=== PATIENT | female | born 1985 | race Asian ===

== ENCOUNTER 2022-01-05 19:34 | Observation (INO) ==
[2022-01-05] MEDS ORDERED: IOPAMIDOL 100 ML BOTTLE IV ONE (19:35)
--- NOTE | 2022-01-05 19:56 | Emergency Department Note ---
Abdominal Pain HPI General Chief Complaint: Abdominal Pain Stated Complaint: abd Time Seen by Provider: 01/05/22 19:37 Source: patient Mode of arrival: ambulatory Limitations: no limitations History of Present Illness HPI Narrative: Narrative: Patient presents ED after being sent over from [facility] for concerning findings on ultrasound correlate in the cholecystitis. Patient's had worsening abdominal pain in the right upper quadrant area over the last week. Patient states that the pain is currently 7/10. Lab work was done over at walk-in clinic and was unremarkable. Patient denies fever, chills, vomiting, diarrhea, constipation, dysuria, hematuria, urinary frequency. Patient denies any other alleviating or aggravating factors. last ate at 4pm. Related Data Home Medications Medication Instructions Recorded Confirmed omeprazole 20 mg tablet,delayed 20 mg PO QDAY 01/05/22 01/05/22 release Allergies Allergy/AdvReac Type Severity Reaction Status Date / Time No Known Drug Allergies Allergy Verified 01/05/22 12:42 Review of Systems ROS ROS Narrative: Narrative: All systems ED: reviewed and negative except as stated. [facility] Narrative Patient History Narrative: Narrative: Medical/Surgical/Family History All Active Problems (Updated 01/05/22 @ 21:51 by Shahriar Corea MD) Cholecystitis (Acute) Acute cholecystitis (Acute) Social History Smoking Status: Current every day smoker Exam Narrative Narrative: Narrative: General Limitations: no limitations General appearance: Present alert Respiratory Respiratory: Present normal lung sounds bilaterally; Absent respiratory distress Cardiovascular Cardiovascular: Present regular rate and normal rhythm Adbominal Abdominal: Present soft, tenderness and normal bowel sounds Expanded Abdominal Abdominal Tenderness: Present RUQ Extremities Extremities: Present normal capillary refill Neurological Neurological: Present oriented X3 and normal gait Psychiatric Psychiatric: Present normal affect and normal mood Skin Skin: Present warm (WNL) and intact Course Course Course Narrative: Patient was evaluated for right upper quadrant abdominal pain. Labs from outside facility were reviewed which show that patient not have a white cell count. She is afebrile with normal vital signs here in the ED. Her UA was unremarkable and her test was negative. Case was discussed with on- call surgeon, Dr. Corea who recommend the patient have a CT of the abdomen and pelvis. CT abdomen pelvis was obtained and confirmed that patient cholecystitis . Patient states that she has been dealing with this pain on and off for over a month and the pain has been worsening to the point where she can even sleep at night. She states what her pain is well controlled right now she was still want to have surgery now supposed to go home and be in pain. On-call surgeon Dr. Corea has placed admission orders. Consultations Consultation #1: Case discussed with on-call surgeon, Dr. Corea, who is agreed to admit the patient for cholecystitis. Time: 20:57 Vital Signs Vital signs: Vital Signs Temperature 97.0 F 01/05/22 19:35 Pulse Rate 96 H 01/05/22 19:35 Respiratory Rate 18 01/05/22 19:35 Blood Pressure 129/93 01/05/22 19:35 Pulse Oximetry (%) 100 01/05/22 19:35 Oxygen Delivery Method 01/05/22 19:35 Temperature 97.0 F 01/05/22 19:35 Pulse Rate 80 01/05/22 21:31 Respiratory Rate 16 01/05/22 20:15 Blood Pressure 139/102 01/05/22 21:31 Pulse Oximetry (%) 100 01/05/22 21:31 Oxygen Delivery Method 01/05/22 20:15 MDM MDM Narrative Medical decision making narrative: Narrative: Differential Diagnosis Differential Diagnosis: Cholecystitis Medical Records Medical records reviewed: Yes I reviewed the patient's medical records. Lab Data Lab results reviewed: Yes I reviewed the patient's lab results. 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
[2022-01-05] MEDS ORDERED: 0.9 % SODIUM CHLORIDE 1,000 ML IV ONE (20:00)
[2022-01-05] MEDS ORDERED: ONDANSETRON 4 MG/2 ML VIAL IV PRN (20:43)
[2022-01-05] MEDS ORDERED: ACETAMINOPHEN 325 MG TABLET PO PRN (20:43)
[2022-01-05] MEDS ORDERED: HYDROmorphone 0.5 MG/0.5 ML SYRINGE IV PRN (20:43)
--- NOTE | 2022-01-05 20:43 | Cat Scan Report ---
History: Right upper quadrant pain 6 technique: Following injection of intravenous nonionic contrast the patient was imaged from above the diaphragm through the symphysis pubis. Sagittal and coronal reformats were created. The radiation exposure was limited using dose reduction technology. FINDINGS: There are linear bands of scar or discoid atelectasis in the lingula, right middle lobe and posterior basal segment left lower lobe. There is no pleural effusion. No hiatus hernia is present. The liver is normal in size. There is focal fatty infiltration the left lobe adjacent to the falciform ligament. The liver is otherwise homogeneous. No abnormality is present in the spleen. Within the lumen of the gallbladder there is a 1.6 x 2.4 cm calcified gallstone. The wall is very thickened and inflamed and measures up to 7 mm. There is no associated free fluid and no abscess is present. The intra and extrahepatic bile ducts are small. Common bile duct is partially 3 mm in diameter. There are no stones within the ducts. No mass or inflammation are present in the pancreas. The adrenals and kidneys are normal. There is no kidney stone or hydronephrosis. The aorta and inferior vena cava are normal. No ascites or adenopathy are present. There is contrast material within the large intestine which may be from a prior study. Moderate amount of unopacified ingested food is present in the stomach. Small intestine is normal and noninflamed. The appendix is normal. Uterus is anteverted. There are multiple moderate size nabothian cysts in the cervix. Ovaries appear normal and symmetric. Urinary bladder is nearly empty and grossly normal. L4-5 disc is mildly narrowed and there is 3 mm grade 1 spondylolisthesis due to arthritis in the facets. Associated with this is a small broad-based bulge. L5-S1 disc is mildly narrowed but there is no disc protrusion. IMPRESSION: Cholelithiasis and cholecystitis Dr. Hairston was called with the report Interpreted and Authenticated by: Abbe Bergman 01/05/22
[2022-01-05] MEDS ORDERED: LEVOFLOXACIN 500 MG/100 ML BAG IV ONE (20:54)
--- NOTE | 2022-01-05 21:43 | General Surgery Consult Note ---
HPI Data of Consult Consult date: 01/05/22 Requesting physician: Dameon Hairston Primary Care Provider: PCP No Consult Narrative Chief complaint: RUQ Pain Reason for consult: Cholecystitis History of present illness: Ruby is seen in consultation tonight with worsening and exacerbation of RUQ Pain that has been ongoing with a fairly severe intensity for the past 6-8 weeks. She was treated for reflux for some period of time without improvement of her symptoms and has been seen multiple times over the past couple of months at various locations as she has been in the area for a short period of time working and is due to return home to [place] in a few days. She was seen in the Urgent Care today and a RUQ US confirmed evidence of gallstones and probable Cholecystitis. She has subsequently presented to the ER. Her laboratory studies have been normal but CT scan demonstrates fairly severe thickening of the gallbladder wall with a large stone lodged in the gallbladder neck. Her baseline health is very good and she denies any cardiac or pulmonary concerns. She is not on any oral anticoagulants and denies use of Home O2, CPAP or BIPAP. She has not had any prior abdominal surgery and she is not currently on any prescription medications. cc:: CC: Review of Systems All systems: reviewed and no additional remarkable complaints except as stated Review of systems: Gen no changes ENT denies pain or bleeding Neuro no recent changes Lymphatic denies adenopathy Cardiac denies chest pain or arrhythmia Resp denies SOB or cough GI see HPI no hematuria Musculoskeletal no changes Heme no bleeding concerns Dermal no changes PFSH PFSH All Active Problems (Updated 01/05/22 @ 21:51 by Shahriar Corea MD) Cholecystitis (Acute) Acute cholecystitis (Acute) Social History smoking status: Current every day smoker MEDS/ALLERGIES Home Medications and Allergies Home Medications Medication Instructions Recorded Confirmed Type omeprazole 20 mg tablet,delayed 20 mg PO QDAY 01/05/22 01/05/22 History release Allergies Allergy/AdvReac Type Severity Reaction Status Date / Time No Known Drug Allergies Allergy Verified 01/05/22 12:42 Physical Examination Vital Signs Vital signs: Temp Pulse Resp BP Pulse Ox O2 Del Method 97.0 F 90 16 118/80 98 01/05/22 19:35 01/05/22 20:15 01/05/22 20:15 01/05/22 20:15 01/05/22 20:15 01/05/22 20:15 General physical appearance General physical exam: well developed, well nourished and no distress Eyes Eye exam: normal ocular movement; negative icteric ENT ENT exam: normal pinna Head Head exam IM: Present atraumatic, normal inspection and normocephalic Neck Neck exam: no masses and trachea midline Cardiovascular Cardiovascular exam IM: Present normal rate and rhythm Respiratory Respiratory exam: normal expansion and normal respiratory effort Abdomen Abdomen: Present soft (soft and focally tender in the RUQ without peritoneal findings, no mass, and remainder of abdomen is soft and non tender) Integumentary Integumentary: Present other (normal appearing intact skin ) Neurologic Neurologic: Present other (grossly intact ) Musculoskeletal Musculoskeletal: Present other (normal appearance ) Results Labs Labs: All other labs normal. A/P Assessment and plan (1) Cholecystitis: Assessment and plan: Clinical and Radiographic Findings consistent with fairly severe and now somewhat chronic Cholecystitis Surgery is recommended and she would like to proceed. Risks, benefits, potential complications and alternative treatment options are all discussed at length including but not limited to infection, bleeding, injury to surrounding structures, conversion to open, partial or subtotal removal, drain placement, bile leak, and a multitude of other issues including the option to undergo Perc Cholecystostomy tube at this time as a temporizing measure We will admit her to the hospital tonight for bowel rest, IVF, IV ABs, and plans to proceed to the OR tomorrow She has a good understanding of the issues and wishes to proceed Status: Acute Time Spent With Patient Time: Total time spent is greater than 50% in coordination of care (as documented) at patient's floor/unit and/or counseling patient:
[2022-01-05] MEDS: DEXTROSE 5%-NS W/20MEQ KCL 1,000 ML IV SCH (22:22)
[2022-01-05] MEDS: PIPERACILLIN SODIUM/TAZOBACTAM 3.375 GM in DEXTROSE 5% IN WATER 50 ML IV SCH (22:52)
[2022-01-05] MEDS: 0.9 % SODIUM CHLORIDE 10 ML SYRINGE IV SCH (22:53)
[2022-01-06] MEDS: PIPERACILLIN SODIUM/TAZOBACTAM 3.375 GM in DEXTROSE 5% IN WATER 50 ML IV SCH ×4 (03:19→17:58)
[2022-01-06 07:28] LABS: Hematocrit 42.8 % (34.1-44.9); Hemoglobin 13.1 g/dL (11.2-15.7); Mean Corpuscular HGB Conc 30.6 g/dL (31.0-36.0); Mean Platelet Volume 9.9 fL (8.8-12.5); Platelet Count 212 K/mcL (140-440); RBC 4.65 M/mcL (3.59-5.38); WBC 4.7 K/mcL (4.5-11.0)
[2022-01-06] MEDS: DEXTROSE 5%-NS W/20MEQ KCL 1,000 ML IV SCH ×2 (07:33→21:00)
[2022-01-06] MEDS: 0.9 % SODIUM CHLORIDE 10 ML SYRINGE IV SCH ×3 (07:34→21:00)
[2022-01-06] MEDS ORDERED: IPRATROPIUM/ALBUTEROL 3 ML AMPUL.NEB NEB PRN ×2 (07:56→14:37)
[2022-01-06] MEDS ORDERED: SCOPOLAMINE 1 PATCH PATCH TOPICAL PRN (07:56)
[2022-01-06 07:57] LABS: ALT/SGPT 14 U/L (<40); AST/SGOT 14 U/L (<32); Albumin 3.9 gm/dL (3.2-5.2); Albumin/Globulin Ratio 1.1 (1.0-2.3); Alkaline Phosphatase 87 U/L (39-117); Bilirubin,Total 0.7 mg/dL (0.1-1.0); Blood Urea Nitrogen 12 mg/dL (6-20); Calcium 8.9 mg/dL (8.6-10.4); Carbon Dioxide 22 mmol/L (22-30); Chloride 105 mmol/L (96-108); Globulin 3.7 gm/dL (2.2-3.7); Glomerular Filtration Rate 71; Glucose 119 mg/dL (70-105)
[2022-01-06] MEDS ORDERED: INDOCYANINE GREEN 25 MG VIAL IV ONE (08:14)
--- NOTE | 2022-01-06 08:58 | General Surgery Progress Note ---
SUBJECTIVE Subjective Patient information: Note initiated : 01/06/22 at 8:56 am Service Date, if different from initiated Date: [] Patient: Ruby Sullivan 36 y/o F admitted on 01/05/22 for abd. Chief Complaint: [] OK overnight, feels largely unchanged, voiding large amounts Constitutional Vitals: Vital Signs Temp Pulse Resp BP Pulse Ox O2 Del Method 100.9 F H 65 20 103/62 92 01/06/22 07:20 01/06/22 03:21 01/06/22 07:20 01/06/22 07:20 01/06/22 07:20 01/06/22 07:20 Period Temp Pulse Resp BP Sys/Miller Pulse Ox O2 Del Method O2 Flow Rate Last 24 Hr 97 F-100.9 F 65-96 16-20 103-142/62-102 92-100 Room Air-Room Air Intake and Output 01/05/22 01/06/22 01/06/22 21:59 05:59 13:59 Intake Total 1200 968 Output Total 650 Balance 550 968 Weight 161 lb 12.8 oz 161 lb 12.8 oz Intake & Output: Intake & Output 01/05/22 01/06/22 01/06/22 21:59 05:59 13:59 Intake Total 1200 968 Output Total 650 Balance 550 968 Weight 161 lb 12.8 oz 161 lb 12.8 oz Intake: IV 1200 968 Sodium Chloride 0.9% 1,000 ml @ 1000 Wide Open IV [facility] Rx#: [id number] Dextrose 5%-Ns W/20Meq KCl 1, 918 000 ml @ 100 mls/hr IV .Q10H [facility] Rx#:[id number] Zosyn 3.375 gm In Dextrose 5% 100 50 in Water 50 ml @ 100 mls/hr IV Q6H [facility] Rx#:[id number] Output: Void Amount 650 Other: Stool Color Yellow Stool Consistency Liquid Exam: looks non toxic, NAD Respiratory Respiratory exam: Present normal respiratory exam Cardiovascular Cardiovascular exam: Present RRR GI/Abdominal Additional comments: soft and non distended, focal tenderness remains Extremities Exam Additional comments: well perfused A/P Assessment and plan (1) Cholecystitis: Assessment and plan: Cholecystitis To the OR this AM Issues reviewed and discussed with patient and SO Proceed to the OR this AM Status: Acute Time Spent With Patient Time: Total time spent is greater than 50% in coordination of care (as documented) at patient's floor/unit and/or counseling patient:
[2022-01-06] MEDS ORDERED: ROCURONIUM 10 MG/ML ML IV ONE (11:35)
[2022-01-06] MEDS ORDERED: MAGNESIUM SULFATE 2 GM/50 ML BAG IV ONE (11:35)
[2022-01-06] MEDS ORDERED: fentaNYL 250 MCG/5 ML VIAL IV ONE (11:35)
[2022-01-06] MEDS ORDERED: SUGAMMADEX SODIUM 200 MG/2 ML VIAL IV ONE (11:35)
[2022-01-06] MEDS ORDERED: KETAMINE 50 MG/ML Syringe (ANEST) IV ONE (11:35)
[2022-01-06] MEDS ORDERED: ePHEDrine 50 MG/5 ML SYRINGE (ANEST) IV ONE (11:35)
[2022-01-06] MEDS ORDERED: LIDOCAINE HCL/PF 100 MG/5 ML SYRINGE IV ONE (11:35)
[2022-01-06] MEDS ORDERED: ONDANSETRON 4 MG/2 ML VIAL ONE ×2 (11:35→23:09)
[2022-01-06] MEDS ORDERED: PROPOFOL 200 MG/20 ML VIAL IV ONE (11:35)
[2022-01-06] MEDS ORDERED: DEXAMETHASONE 10 MG/ML VIAL ONE (11:35)
[2022-01-06] MEDS ORDERED: BUPIVACAINE W/EPI 0.5% 50 ML VIAL IJ ONE (12:05)
[2022-01-06] MEDS ORDERED: diphenhydrAMINE 50 MG/ML VIAL IV PRN (14:37)
[2022-01-06] MEDS ORDERED: LACTATED RINGERS 250 ML IV PRN (14:37)
[2022-01-06] MEDS ORDERED: ACETAMINOPHEN 1,000 MG/100 ML BAG IV ONE (14:37)
[2022-01-06] MEDS ORDERED: ONDANSETRON 4 MG/2 ML VIAL IV PRN (14:37)
[2022-01-06] MEDS ORDERED: NALOXONE HCL 0.4 MG/ML VIAL IV PRN (14:37)
[2022-01-06] MEDS ORDERED: fentaNYL 100 MCG/2 ML VIAL IV PRN (14:37)
[2022-01-06] MEDS ORDERED: PROMETHAZINE 25 MG/ML VIAL IV PRN (14:37)
[2022-01-06] MEDS ORDERED: HYDROmorphone 0.5 MG/0.5 ML SYRINGE IV PRN (14:37)
[2022-01-06] MEDS ORDERED: MEPERIDINE 25 MG/ML VIAL IV PRN (14:37)
[2022-01-06] MEDS ORDERED: LACTATED RINGERS 1,000 ML IV SCH (14:45)
--- NOTE | 2022-01-06 19:47 | Brief Operative Note ---
Brief Operative Note Date of procedure: 01/06/22 Pre-op diagnosis: Cholecystitis Post-op diagnosis: same Procedure: Laparoscopic Lysis of Adhesions and Fenestrating Subtotal Cholecystectomy with Drain Placement Grafts/Implants: Yes (19 FR Franky Drain ) Anesthesia: GETA Findings: 1. Extensive Adhesions between Dome of the Liver and the overlying Abdominal Wall; Severely Inflamed Gallbladder with Frozen Hepatocystic [place] Necessitating Subtotal Fenestrating Cholecystectomy Complications: none Surgeon: Shahriar Corea Estimated blood loss (cc): 25 Specimens Removed/Pathology: other (Anterior Wall of Gallbladder, Large Gallstone ) Condition: stable Disposition: PACU
[2022-01-06] MEDS ORDERED: ACETAMINOPHEN 325 MG TABLET PO ONE (21:16)
[2022-01-06] MEDS: oxyCODONE HCL 5 MG TABLET PO PRN (23:02)
[2022-01-06] MEDS ORDERED: oxyCODONE HCL 5 MG TABLET PO ONE (23:10)
[2022-01-07] MEDS: PIPERACILLIN SODIUM/TAZOBACTAM 3.375 GM in DEXTROSE 5% IN WATER 50 ML IV SCH ×5 (01:29→23:23)
[2022-01-07] MEDS: 0.9 % SODIUM CHLORIDE 10 ML SYRINGE IV SCH ×3 (06:07→22:45)
[2022-01-07] MEDS: DEXTROSE 5%-NS W/20MEQ KCL 1,000 ML IV SCH ×4 (06:40→23:22)
[2022-01-07 06:46] LABS: Hematocrit 33.8 % (34.1-44.9); Hemoglobin 10.4 g/dL (11.2-15.7); Mean Cell Volume 92.6 fL (80.0-100.0); Mean Corpuscular HGB Conc 30.8 g/dL (31.0-36.0); Mean Platelet Volume 9.6 fL (8.8-12.5); Platelet Count 183 K/mcL (140-440); RBC 3.65 M/mcL (3.59-5.38); Red Cell Distribution Width 14.7 % (11.5-14.5); WBC 6.6 K/mcL (4.5-11.0)
[2022-01-07 07:10] LABS: ALT/SGPT 44 U/L (<40); AST/SGOT 45 U/L (<32); Alkaline Phosphatase 66 U/L (39-117); Bilirubin,Total 0.2 mg/dL (0.1-1.0); Blood Urea Nitrogen 5 mg/dL (6-20); Calcium 7.8 mg/dL (8.6-10.4); Carbon Dioxide 24 mmol/L (22-30); Chloride 109 mmol/L (96-108); Globulin 3.1 gm/dL (2.2-3.7); Glomerular Filtration Rate 109; Glucose 140 mg/dL (70-105)
[2022-01-07] MEDS: oxyCODONE HCL 5 MG TABLET PO PRN ×4 (07:16→23:22)
[2022-01-07] MEDS ORDERED: ACETAMINOPHEN 325 MG TABLET PO PRN (07:49)
[2022-01-07] MEDS ORDERED: HYDROmorphone 0.5 MG/0.5 ML SYRINGE IV PRN (07:50)
[2022-01-07] MEDS ORDERED: ONDANSETRON 4 MG/2 ML VIAL IV PRN (07:52)
[2022-01-07] MEDS ORDERED: PIPERACILLIN SODIUM/TAZOBACTAM 3.375 GM in DEXTROSE 5% IN WATER 50 ML IV SCH (08:00)
[2022-01-07] MEDS ORDERED: DEXTROSE 5%-NS W/20MEQ KCL 1,000 ML IV SCH (08:15)
--- NOTE | 2022-01-07 10:30 | General Surgery Progress Note ---
SUBJECTIVE Subjective Patient information: Note initiated : 01/07/22 at 10:26 am Service Date, if different from initiated Date: [] Patient: Ruby Sullivan 36 y/o F admitted on 01/05/22 for abd. Chief Complaint: [] She looks and feels well this am, tolerating clears, passing gas and has been ambulatory. Feels much improved compared to her admission status. Constitutional Vitals: Vital Signs Temp Pulse Resp BP Pulse Ox O2 Del Method O2 Flow Rate 98 F 71 16 107/74 95 1 01/07/22 07:20 01/07/22 03:27 01/07/22 07:20 01/07/22 07:20 01/07/22 07:20 01/07/22 07:20 01/06/22 16:00 Period Temp Pulse Resp BP Sys/Miller Pulse Ox O2 Del Method O2 Flow Rate Last 24 Hr 97.0 F-98.6 F 53-80 12-29 100-152/64-113 93-100 Nasal Cannula- Room Air 1-6 Intake and Output 01/06/22 01/07/22 01/07/22 21:59 05:59 13:59 Intake Total 3650 880 1530 Output Total 740 920 255 Balance 2910 -40 1275 Weight 166 lb 6 oz Intake & Output: Intake & Output 01/06/22 01/07/22 01/07/22 21:59 05:59 13:59 Intake Total 3650 880 1530 Output Total 740 920 255 Balance 2910 -40 1275 Weight 166 lb 6 oz Intake: IV 1050 50 1050 Dextrose 5%-Ns W/20Meq KCl 1, 1000 1000 000 ml @ 100 mls/hr IV .Q10H [facility] Rx#:[id number] Zosyn 3.375 gm In Dextrose 5% 50 50 50 in Water 50 ml @ 100 mls/hr IV Q6H [facility] Rx#:[id number] Oral 830 480 IV - Manual Only 2600 Output: Drainage 390 120 30 Right KELSI Drain 390 120 30 Void Amount 250 800 225 Estimated Blood Loss 100 Other: Meal Breakfast Percent of Meal Consumed 100% Urine Appearance Clear Urine Color Dark Avani Urine Odor Strong Exam: Looks well, NAD Head Head exam: Present atraumatic, normal inspection and normocephalic Respiratory Respiratory exam: Present normal respiratory exam Cardiovascular Cardiovascular exam: Present normal rate and rhythm and RRR GI/Abdominal Additional comments: soft and non distended, mininally tender, drain scant serosang, A/P Assessment and plan (1) Acute cholecystitis: Plan: Post Lap Fenestrating Subtotal Cholecystectomy for severe cholecystitis Doing Well Advance Diet Increase activity and re evaluate in AM, no discharge today Status: Acute Time Spent With Patient Time: Total time spent is greater than 50% in coordination of care (as documented) at patient's floor/unit and/or counseling patient:
[2022-01-07] MEDS: oxyCODONE HCL 5 MG TABLET PO ONE ×2 (10:54→13:44)
[2022-01-08] MEDS: oxyCODONE HCL 5 MG TABLET PO PRN ×2 (04:05→09:21)
[2022-01-08] MEDS: 0.9 % SODIUM CHLORIDE 10 ML SYRINGE IV SCH (04:05)
[2022-01-08] MEDS: PIPERACILLIN SODIUM/TAZOBACTAM 3.375 GM in DEXTROSE 5% IN WATER 50 ML IV SCH ×2 (06:09→12:16)
[2022-01-08 06:25] LABS: Hematocrit 32.9 % (34.1-44.9); Hemoglobin 9.8 g/dL (11.2-15.7); Mean Cell Volume 95.4 fL (80.0-100.0); Mean Corpuscular HGB Conc 29.8 g/dL (31.0-36.0); Platelet Count 177 K/mcL (140-440); RBC 3.45 M/mcL (3.59-5.38); Red Cell Distribution Width 15.1 % (11.5-14.5); WBC 5.1 K/mcL (4.5-11.0)
[2022-01-08 06:56] LABS: ALT/SGPT 29 U/L (<40); AST/SGOT 20 U/L (<32); Albumin 2.7 gm/dL (3.2-5.2); Albumin/Globulin Ratio 0.9 (1.0-2.3); Alkaline Phosphatase 56 U/L (39-117); Bilirubin,Total < 0.2 mg/dL (0.1-1.0); Blood Urea Nitrogen 8 mg/dL (6-20); Calcium 7.9 mg/dL (8.6-10.4); Carbon Dioxide 22 mmol/L (22-30); Chloride 110 mmol/L (96-108); Globulin 2.9 gm/dL (2.2-3.7); Glomerular Filtration Rate 109; Glucose 115 mg/dL (70-105)
--- NOTE | 2022-01-08 08:32 | General Surgery Progress Note ---
SUBJECTIVE Subjective Patient information: Note initiated : 01/08/22 at 8:27 am Service Date, if different from initiated Date: [] Patient: Ruby Sullivan 36 y/o F admitted on 01/05/22 for abd. Chief Complaint: [] POD #2 Lap Subtotal Fenestrating Cholecystectomy Doing well this am, continues to feel much improved, tolerating diet, pain remains overall improved Constitutional Vitals: Vital Signs Temp Pulse Resp BP Pulse Ox O2 Del Method O2 Flow Rate 98.2 F 64 16 144/102 94 98 01/08/22 08:00 01/08/22 08:00 01/08/22 08:00 01/08/22 08:00 01/08/22 03:16 01/08/22 08:00 01/08/22 08:00 Period Temp Pulse Resp BP Sys/Miller Pulse Ox O2 Del Method O2 Flow Rate Last 24 Hr 98.1 F-99.2 F 64-71 16-20 113-154/81-102 94-99 Room Air-Room Air 98 Intake and Output 01/07/22 01/08/22 01/08/22 21:59 05:59 13:59 Intake Total 1390 1680 50 Output Total 370 280 Balance 1020 1400 50 Weight 172 lb 1 oz Intake & Output: Intake & Output 01/07/22 01/08/22 01/08/22 21:59 05:59 13:59 Intake Total 1390 1680 50 Output Total 370 280 Balance 1020 1400 50 Weight 172 lb 1 oz Intake: IV 1050 1050 50 Dextrose 5%-Ns W/20Meq KCl 1, 1000 1000 000 ml @ 75 mls/hr IV .[id number] [facility] Rx#:[id number] Zosyn 3.375 gm In Dextrose 5% 50 50 50 in Water 50 ml @ 100 mls/hr IV Q6H [facility] Rx#:[id number] Oral 340 630 Output: Drainage 45 80 Right KELSI Drain 45 80 Void Amount 325 200 Other: Meal Dinner Percent of Meal Consumed 75% Urine Appearance Clear Urine Color Yellow Stool Size Moderate Moderate Stool Color Brown Brown Green Stool Consistency Watery Loose Jesenia # Voids 1 # Bowel Movements 1 1 Exam: Looks well, non toxic, NAD Respiratory Respiratory exam: Present normal respiratory exam Cardiovascular Cardiovascular exam: Present normal rate and rhythm and RRR GI/Abdominal Additional comments: soft and non distended, non tender, dressings dry, drain light pink serosang Extremities Exam Additional comments: well perfused A/P Assessment and plan (1) Cholecystitis: Assessment and plan: Severe Cholecystitis now POD #3 Subtotal Fenestrating Cholecystectomy Doing Well Continue present care, possibly out later on today if feeling well enough to go Status: Acute Time Spent With Patient Time: Total time spent is greater than 50% in coordination of care (as documented) at patient's floor/unit and/or counseling patient:
--- NOTE | 2022-01-09 09:15 | Operative Note ---
DATE OF OPERATION: 01/06/2022 PREOPERATIVE DIAGNOSIS: Severe cholecystitis. POSTOPERATIVE DIAGNOSIS: Severe cholecystitis. OPERATIVE PROCEDURE: 1. Laparoscopic lysis of adhesions. 2. Fenestrating subtotal cholecystectomy with washout and drain placement. SURGEON: Shahriar Corea M.D. ANESTHESIA: General. PREOPERATIVE MEDICATIONS: Zosyn 3.375 grams IV. INDICATIONS FOR PROCEDURE: The patient is a 36-year-old female who for roughly 6 weeks now has had severe unremitting and now worsening right upper quadrant pain and discomfort. She is in the area temporarily and is permanently located in [place], but travels quite a bit with her significant other for work. She has had a number of visits to emergency rooms and workup that had been non-definitive in terms of establishing a diagnosis. She was seen in our urgent care on 01/05/2022 and an ultrasound was obtained, which demonstrated findings of cholecystitis. She was seen in the emergency room following that. CT scan was obtained on 01/05/2022, which demonstrated findings, again, of severe cholecystitis. We were asked to see her in consultation. She was brought to the hospital after recommendations for surgery. Risks, benefits, potential complications, and alternative treatment options relative to our proposed procedure were all discussed at length with her, and she was aware of all options and wished to proceed. We specifically discussed the possibility of a partial or subtotal or fenestrating cholecystectomy given how severe her cholecystitis appeared to be on imaging along with the chronicity and duration of her symptoms. Additionally, we discussed the options for temporizing measures, such as percutaneous cholecystostomy, the potential need for conversion to an open procedure, trocar injury, bile leak, drain placement, potential need for adjunct procedures such as ERCP for stent placement and other concerns. She was aware of all of these issues. She was aware of the possibility of an impedance of their plans to travel out of the area within 24 to 48 hours and other issues as well and very much wished to undergo the procedure. PROCEDURE IN DETAIL: The patient was taken to the OR and placed supine on the OR table, placed under general anesthesia and intubated. Bilateral SCDs were applied and pressure sensitive areas were carefully padded. Arms were placed out on arm boards. Her abdomen was widely prepped and draped in a sterile fashion. Procedure began with access to the peritoneal cavity utilizing a 0-degree 5 mm scope through a Visiport in the right upper abdomen. Once we had obtained pneumoperitoneum with high-flow CO2 insufflation, the area of access was examined carefully with a 0-degree scope to make sure there was no evidence of injury; none was seen. We then changed out the 0-degree scope to a 30-degree scope and placed our remaining trocars, which included a 5 mm periumbilical trocar, an additional 5 mm right upper abdominal working trocar, and a 12 mm midepigastric subxiphoid trocar. Again, all placed under direct vision. The camera was re-sited at the periumbilical site. The patient was placed in a position airplaned towards the left side with reverse Trendelenburg to facilitate exposure to the area of the gallbladder. The gallbladder could be seen. It was markedly distended with tremendous inflammatory changes that appeared to be both chronic and acute. It was not graspable at this point, so I utilized the penetrating tip of the suction canal driver to decompress it and then we were able to grasp the fundus and retract this towards the right shoulder. Her liver was very stiff. At this point, I observed a large number of adhesions between the dome of the liver and the overlying abdominal wall and these were taken down sharply to improve mobilization of the liver and this did help to some degree, but ultimately the liver was quite stiff and the gallbladder was extremely firm and essentially immobile. I was able to gently dissect away the underlying duodenum and other adhesions to the infundibular area of the gallbladder and no thermal energy was used here. In the course of the dissection, we were able to free up and begin to identify the anterolateral aspect of the infundibulum and its junction point with the overlying gallbladder fossa and the gallbladder here, but coming across anteriorly it became apparent over time and despite extensive efforts that the hepatocystic triangle was essentially frozen and the common bile duct, which could be seen, appeared to be entirely adherent to the base of the gallbladder along its lateral aspect here, and I was unable to achieve any separation working in this area, and ultimately after attempting to free and liberate this area and to elevate the gallbladder away, I felt that at this point I had to proceed with a subtotal fenestrating approach given the severity of cholecystitis and the immobility of the gallbladder adjacent to the bile duct. To that end, I was able to open up the anterior aspect of the fundus with cautery and then utilizing primarily the laparoscopic LigaSure device, essentially made an inverted ''T'' on the anterior fundus of the gallbladder and remove the entire aspect of the anterior wall down to the level of the infundibulum. The back wall of the gallbladder was left in place and then a single large stone was extracted and placed in an EndoCatch and removed along with the sections of the anterior gallbladder wall. The area was then extensively irrigated out and made sure there was no active bleeding or hemorrhage. Any areas of oozing along the areas of transection of the gallbladder wall were cauterized and some Surgicel was applied as well. No other visible stony debris was apparent. No bile was observed leaking at this point from the infundibular stump. I then elected to bring in a 19-Prydeinig round Franky drain, which was brought in through the lateral right upper abdominal 5 mm working trocar site and secured in place with a 3-0 silk suture and positioned on the underside of the liver immediately adjacent to the gallbladder infundibular stump and the gallbladder fossa. We irrigated out a final time to make sure there was no active bleeding or hemorrhage; none was seen. I then removed the 12 mm subxiphoid and mid epigastric trocar and closed the fascia here with the inlet fascial closure device utilizing an 0 Vicryl stitch under direct vision. We checked the area of dissections a final time and made sure there was no active bleeding, biliary leakage, or any other abnormalities; none were seen. The remaining trocars were taken out without difficulty. The incisions were all closed with interrupted 3-0 Vicryl and 4-0 Monocryl sutures, respectively. Steri-Strips and sterile dressings were applied. The patient was awakened, extubated, and transferred to PACU in satisfactory condition. No apparent complications or issues. Sponge and instrument counts were correct. Findings were discussed above. BW:gal Job ID: [id number] Doc ID: [id number] Shahriar Corea M.D.
== END 2022-01-08 13:40 | disposition home or self-care (01) ==
LOC: MEDSUR 19:34 → ED 19:34 → MEDSUR 22:05
PROVIDERS: ADMIT Surgery Surgical Critical Care; ATTEND Surgery Surgical Critical Care